=== PATIENT | male | born 1925 | race Caucasian/White ===

== ENCOUNTER 2017-07-10 08:44 | Inpatient (IN) | payer MEDICARE, OTHER ==
[~2017-07-10] VITALS: Ht 175.3 cm; Wt 72.1 kg
[~2017-07-10 08:44] MED LIST: ARICEPT 5 MG TAB5 MG PO; ASA81BEC PO; AZULFIDINE500 MG PO; CALCIUM 500 +1 EAC5 PO; CENTRUM SILVER1 EAC4 PO; DETROL LA4 MG PO; HYDROXYCHLOROQ200 M1 PO; PROBIOTIC1 EAC1 PO; TOPROL XL25 MG PO; VITAMIN E400 UNIT PO; ZANTAC 150MG T150 MG PO
--- NOTE | 2017-07-10 08:51 | NUR ---
CODE STROKE ACTIVATED FROM THE FIELD AT 0832 SEE CODE STROKE PAPERWORK.
[2017-07-10] MEDS ORDERED: GALANTAMINE HBR16 MG PO (08:56)
[2017-07-10] MEDS ORDERED: NORVASC5 MG PO (08:56)
[2017-07-10] MEDS ORDERED: CLOTRIMAZOLE 1%15 G1 TOP (08:57)
[2017-07-10] MEDS ORDERED: PRESERVISION A1 EACH PO (08:57)
[2017-07-10] MEDS ORDERED: HYDROCORTISONE30 G9 TOP (08:58)
[2017-07-10] MEDS ORDERED: VUSION OINTMENT50 GM TOP (08:58)
[2017-07-10] MEDS ORDERED: TINACTIN150 GM TOP (08:59)
[2017-07-10] MEDS ORDERED: [UNRECOGNIZED DRUG - OTHER] TOP (08:59)
[2017-07-10 09:09] LABS: HEMOGLOBIN 12.4 gm/dL (14.0-18.0); NUCLEATED RBCS 0 /100WBC
[2017-07-10 09:10] LABS: ABSOLUTE BASOPHILS 0.1 thou/uL (0.0-0.2); ABSOLUTE EOSINOPHILS 0.7 thou/uL (0.0-0.7); ABSOLUTE LYMPHOCYTES 2.9 thou/uL (0.8-5.3); ABSOLUTE MONOCYTES 1.2 thou/uL (0.0-1.2); ABSOLUTE NEUTROPHILS 6.3 thou/uL (1.6-8.1); BASOPHILS 1.1 %; EOSINOPHILS 6.1 %; HEMATOCRIT 37.1 % (42.0-52.0); LYMPHOCYTES 26.1 %; MCH 32.8 pg (26.0-34.0); MCHC 33.4 g/dL (28.0-37.0); MCV 98.3 fL (80.0-100.0); MONOCYTES 11.1 %; PLATELET COUNT* 219 thou/uL (150-400); POLYS 55.6 %; RBC 3.78 mil/uL (4.50-6.00); RDW-CV 14.1 % (10.5-14.5); WBC 11.3 thou/uL (4.0-11.0)
[2017-07-10 09:17] LABS: ANION GAP 6 mmol/L (7-16); BUN 21 mg/dL (7-18); CALCIUM 8.5 mg/dL (8.5-10.1); CHLORIDE 104 mmol/L (98-107); CO2 31 mmol/L (21-32); CREATININE 0.9 mg/dL (0.6-1.3); GLUCOSE 116 mg/dL (70-99); POTASSIUM 3.2 mmol/L (3.5-5.1); SODIUM 141 mmol/L (136-145)
[2017-07-10 09:19] LABS: APTT 23.4 Seconds (25.0-31.3); INR 1.3; PROTIME 12.6 Seconds (9.20-11.50)
[2017-07-10 09:24] LABS: ALKALINE PHOSPHATASE 109 U/L (46-116); SGOT 28 U/L (15-37); SGPT 22 U/L (30-65); TOTAL BILIRUBIN 1.4 mg/dL (<0.1-1.0); TOTAL PROTEIN 6.7 g/dL (6.4-8.2); TROPONIN-I LEVEL <0.06 ng/mL (<0.06)
[2017-07-10 14:46] VITALS: BP 154/86
--- NOTE | 2017-07-10 16:01 | EKG ---
[place] [address] ELECTROCARDIOGRAM REPORT Name: RAMIROPAVAN Room: [address] ADM IN .R.#: [id number] Admission: 07/10/17 Attend Phys: Danika Motley Discharge: Date of : [birth year] Report #: [id number] THIS REPORT FOR: //name// [facility] ED Test Date: 2017-07-10 Test Time: 09:12:48 Pat Name: PAVAN RUBIO Department: Room: [facility] Gender: Insurance Biller: Tj PALACIOS : 1925 Requested By: Wilber Orozco Order Number: [id number] MD: Mumtaz Calderon Measurements Intervals [place] Rate: 119 P: CO: QRS: 32 QRSD: 120 T: 52 QT: 362 QTc: 510 Interpretive Statements Atrial fibrillation Nonsustained VT suggested Nonspecific intraventricular conduction delay Nonspecific T abnormalities, lateral leads No previous ECG available for comparison Electronically Signed On 07-10-2017 16:01:33 CUFF TURNER MACHINE OPERATOR by Mumtaz Calderon [email or web address] <ELECTRONICALLY SIGNED> By: Mumtaz Calderon MD, [facility] 07/10/17 1601 1 1 Mumtaz Calderon MD, FACC /EPI
[2017-07-10 19:25] VITALS: BP 135/78
[2017-07-11] VITALS (7 sets, daily range): BP systolic 91–158; BP diastolic 58–96
[2017-07-11 01:32] LABS: POC CA IONIZED 4.5 mg/dL (4.5-5.3); POC CREATININE 0.8 mg/dL (0.6-1.3); POC HEMOGLOBIN 11.9 g/dL (12.0-17.0); POC POTASSIUM 3.4 mmol/L (3.5-4.9)
--- NOTE | 2017-07-11 02:01 | NUR ---
ASSUMED CARE OF PT AT 1900. PT IS VERY CONFUSED. VSS. PERRLA. NO SIGNS OF PAIN. NIH IS VERY HIGH. PT IS UNABLE TO FOLLOW SIMPLE COMMANDS SO IM UNSURE PT UNDERSTANDS NIH DIRECTIONS. HOWEVER, PT IS FLACCID ON HIS LEFT SIDE. HIS SPEECH IS VERY SLURRED AND HE HAS A SIGNIFICANT FACIAL DROOP. PT IS IN A FIB ON THE TELEMETRY. PT IS RESTING COMFORTABLY IN BED. RESPIRATIONS ARE EVEN AND NONLABORED. WILL CONTINUE TO MONITOR PT.
[2017-07-11 05:30] LABS: ABSOLUTE EOSINOPHILS 0.1 thou/uL (0.0-0.7); ABSOLUTE LYMPHOCYTES 1.9 thou/uL (0.8-5.3); ABSOLUTE MONOCYTES 1.3 thou/uL (0.0-1.2); ABSOLUTE NEUTROPHILS 6.3 thou/uL (1.6-8.1); BASOPHILS 0.5 %; EOSINOPHILS 1.3 %; HEMOGLOBIN 11.6 gm/dL (14.0-18.0); LYMPHOCYTES 19.5 %; MCH 33.3 pg (26.0-34.0); MCHC 34.1 g/dL (28.0-37.0); MCV 97.7 fL (80.0-100.0); MONOCYTES 13.5 %; MPV 8.6 fl. (7.2-11.1); NUCLEATED RBCS 0 /100WBC; PLATELET COUNT* 201 thou/uL (150-400); POLYS 65.2 %; RBC 3.48 mil/uL (4.50-6.00); RDW-CV 13.7 % (10.5-14.5); WBC 9.6 thou/uL (4.0-11.0)
[2017-07-11 06:02] LABS: CREATININE 0.7 mg/dL (0.6-1.3)
[2017-07-11 07:14] LABS: POTASSIUM 3.8 mmol/L (3.5-5.1)
--- NOTE | 2017-07-11 15:41 | NUR ---
CM ASSESSMENT: Pt was fast asleep in bed. Dtr at bedside. Pt resides at [facility] on the memory care unit, for the past 16 months. Pt can complete some of his ADLs, but requires guidance from staff. Pt uses a walker for mobility. Pt wears a leg brace. Hx of HH, but dtr does not remember the name of the agency. Dtr is contemplating hiring a nurse to stay with Pt during the day while at [facility]. No home o2. Hx of a nebulizer. Dtr stated the ER dr recommended that Pt go to rehab at dc. PT/OT evals pending. Following for dc needs.
--- NOTE | 2017-07-11 16:25 | NUR ---
ASSUMED PT CARE AT 0700 PT IS ALERT TO SELF PT SHOWS NO SIGNS OF PAIN OR SOA ON 2L/NC PT IS CONFUSED TRIES TO TAKE OF O2 FAMILY STATES THIS IS BASELINE PT IS A FALL RISK BED ALARM IS ON, PT IS FLACCID ON LEFT SIDE PT ON BEDREST, TALKED WITH DR VAZQUEZ ABOUT GIVING TAMIFLU RECTALLY PHYSICIAN APPROVED ROUTE OF ADMISSION, TALKED WITH MDS RN AND OBTAINED ORDER FOR RECTAL ASPIRIN FROM PHYSICIAN, SPEECH EVAULUATION ORDERED SPEECH EVAULUATED PT AND ORDERED DIET FOR PT AND NECTAR THICK LQUIDS PT NEEDS TO BE FULLY AWAKE TO FEED, OBTAINED COPY OF PT LIVING WILL, PT IS AFIB ON THE MONITOR PT HAS HISTORY OF AFIB, WILL CONTINUE TO MONITOR
--- NOTE | 2017-07-11 22:07 | NUR ---
ASSUMED CARE OF PT AT 1900. PT IS CONFUSED BUT MORE ALERT THAN THIS MORNING. PT HAS MADE SIGNIFICANT IMPROVEMENTS. HIS NIH IS NOW ONLY AT 12 AND SOME OF THAT IS DO TO THE FACT THAT I DONT THINK HE IS ABLE TO UNDERSTAND SOME OF THE DIRECTIONS. HIS LEFT SIDE IS NO LONGER FLACCID BUT STILL HAS A DRIFT. HIS RIGHT SIDE NO LONGER HAS A DRIFT. HE UNDERSTANDS AND IS ABLE TO FOLLOW SIMPLE COMMANDS SUCH SMILE AND OPEN AND CLOSE FISTS. HE ALSO WAS ABLE TO EAT 1 CONTAINER OF PUDDING AND DRINK A THICKENED ORANGE JUICE. VSS. NO COMPLAINTS OF PAIN. PT DOES HAVE A SORE ON HIS LIP WHICH HE CONTINUES TO PICK AT. PT IS IN A FIB ON THE TELEMETRY. PT IS RESTING COMFORTABLY IN BED. RESPIRATIONS ARE EVEN AND NONLABORED. WILL CONTINUE TO MONITOR PT.
[2017-07-12] VITALS: BP 128/73
[2017-07-12 04:00] VITALS: BP 121/69
[2017-07-12 05:43] LABS: ABSOLUTE MONOCYTES 0.6 thou/uL (0.0-1.2); ABSOLUTE NEUTROPHILS 8.3 thou/uL (1.6-8.1); BASOPHILS 0.2 %; HEMATOCRIT 37.4 % (42.0-52.0); HEMOGLOBIN 12.5 gm/dL (14.0-18.0); LYMPHOCYTES 10.1 %; MCH 32.6 pg (26.0-34.0); MCHC 33.3 g/dL (28.0-37.0); MCV 97.9 fL (80.0-100.0); MONOCYTES 5.7 %; NUCLEATED RBCS 0 /100WBC; PLATELET COUNT* 235 thou/uL (150-400); RBC 3.82 mil/uL (4.50-6.00); WBC 9.9 thou/uL (4.0-11.0)
[2017-07-12 05:58] LABS: CALCIUM 8.6 mg/dL (8.5-10.1); CREATININE 0.9 mg/dL (0.6-1.3); POTASSIUM 3.6 mmol/L (3.5-5.1)
[2017-07-12 06:11] LABS: CHOLESTEROL 158 mg/dL (<200); HDL CHOLESTEROL 39 mg/dL (>40); LDL CHOLESTEROL 107 mg/dL (<100); SERUM ASSESSMENT Clear; TC:HDL 4.1 Ratio (Not establshd); TRIGLYCERIDE 60 mg/dL (<150); VLDL 12 mg/dL (<40)
[2017-07-12 11:24] VITALS: BP 117/69
--- NOTE | 2017-07-12 15:47 | NUR ---
Rehab consult placed.
[2017-07-12 15:58] VITALS: BP 174/73
--- NOTE | 2017-07-12 16:46 | NUR ---
ASSUMED PT CARE AT 0700 PT IS ALERT AND ORIENTED X 3 PT SHOWS NO SIGNS OF PAIN OR SOA ON 2L/NC PT BASELINE IS CONFUSED PT COMES FROM A FACILTIY PT HAS LEFT SIDED WEAKNESS PT IS ABLE TODAY TO LIFT LEFT ARM AND LEFT LEG PT ABLE TO SWALLOW MEDICATIONS AND EAT MECHANICAL GROUND FOOD AND HAVE NECTAR THICK LIQUIDS PT HAS DIFFICULTY FOLLOWING COMMANDS CAN FOLLOW SIMPLE INSTRUCTIONS, PT IS AFIB ON THE MONITOR, PT UP WITH MAX ASSIST TO THE CHAIR PT IS A FALL RISK BED AND CHAIR ALARMS ON, WILL CONTINUE TO MONITOR
[2017-07-12 20:00] VITALS: BP 140/78
[2017-07-12 22:11] LABS: GLYCOHEMOGLOBIN (HGB A1C) 5.4 % (4.8-5.6)
[2017-07-13] VITALS: BP 165/76
[2017-07-13 04:00] VITALS: BP 154/76
--- NOTE | 2017-07-13 05:04 | NUR ---
PT ALERT FORGETFUL. INCONT OF URINE. BUTTOCKS RED. PICTURES TAKEN WOUND NURSE NOTIFIED. TURNED Q 2 HRS. PT IN ISOLATION FOR FLU. O2 AT 2 LITERS NC. LOOSE NONPRODUCTIVE COUGH. ON NECTAR THICK LIQUIDS. WILL CONTINUE TO MONITOR.
[2017-07-13 05:25] LABS: HEMATOCRIT 35.1 % (42.0-52.0); HEMOGLOBIN 11.6 gm/dL (14.0-18.0); MCH 32.5 pg (26.0-34.0); MCHC 33.1 g/dL (28.0-37.0); MCV 98.1 fL (80.0-100.0); MPV 8.8 fl. (7.2-11.1); NUCLEATED RBCS 0 /100WBC; PLATELET COUNT* 261 thou/uL (150-400); RBC 3.58 mil/uL (4.50-6.00); RDW-CV 14.2 % (10.5-14.5); WBC 16.8 thou/uL (4.0-11.0)
[2017-07-13 05:37] LABS: CALCIUM 8.6 mg/dL (8.5-10.1); CREATININE 0.9 mg/dL (0.6-1.3); POTASSIUM 3.5 mmol/L (3.5-5.1)
[2017-07-13 06:31] LABS: ABSOLUTE LYMPHOCYTES 1.3 thou/uL (0.8-5.3); ABSOLUTE MONOCYTES 1.3 thou/uL (0.0-1.2); ABSOLUTE NEUTROPHILS 14.1 thou/uL (1.6-8.1); ANISOCYTOSIS 1+; PLATELET ESTIMATE ADEQUATE; POIKILOCYTOSIS 1+
--- NOTE | 2017-07-13 07:25 | NUR ---
CHANGE OF SHIFT, BEDSIDE REPORT GIVEN ASSUMED PATIENT CARE PATIENT SEEN AT BEDSIDE, ASLEEP BED ALARM SET
[2017-07-13 08:00] VITALS: BP 143/85
--- NOTE | 2017-07-13 10:13 | NUR ---
Rehab is able to accept Pt on Monday.
--- NOTE | 2017-07-13 14:50 | NUR ---
WOUND NURSE: PATIENT SEEN FOR WOUND ASSESSMENTOF SKIN LESIONS ON BUTTOCKS AND SACRUM. RIGHT SACRUM PRESENTS 1.0 X 1.0 X 0.1 CM RUPTURED BULLA WITH SCANT AMOUNT OF SEROUS DRAINAGE PRESENT AT TIME OF THIS ASSESSMENT. THERE IS SMALL AMOUNT OF LOCALIZED REDNESS, NO WARMTH OR INDURATION. LEFT BUTTOCK AND SACRUM WITH 1 CM CIRCIFORM AREA WITH RED, NONBLANCHEABLE SKIN, NO OPEN WOUND. OPEN AREA WAS CLEANSED WITH SOAP AND WATER, RINSED WITH WATER, THEN PATTED DRY. APPLIED SKIN PREP TO INTACT PERIWOUND TISSUE, THEN APPLIED AQUACEL AG UNDER BORDERED FOAM. ABOVE PROCEDURE TOLERATED WELL. PATIENT ON HIS WAY FOR XRAY PROCEDURE. MOISTURE BARRIER APPLIED TO BUTTOCKS FOR PROTECTION.
[2017-07-13 20:00] VITALS: BP 141/90
--- NOTE | 2017-07-14 04:19 | NUR ---
PT ALERT ORIENTED TO SELF AND PLACE. TELEMETRY SHOWS A FIB. ON NECTAR THICK. POOR PO INTAKE. PT NEEDS ENCOURAGEMENT. O2 AT 2 LITERS NC. NONPRODUCTIVE COUGH. TURNING Q 2 HRS. WILL CONTINUET TO MONITOR.
[2017-07-14 05:20] LABS: ABSOLUTE LYMPHOCYTES 1.2 thou/uL (0.8-5.3); ABSOLUTE MONOCYTES 1.1 thou/uL (0.0-1.2); ABSOLUTE NEUTROPHILS 8.8 thou/uL (1.6-8.1); BASOPHILS 0.1 %; EOSINOPHILS 0.1 %; HEMATOCRIT 33.6 % (42.0-52.0); HEMOGLOBIN 11.3 gm/dL (14.0-18.0); LYMPHOCYTES 11.2 %; MCH 32.6 pg (26.0-34.0); MCHC 33.6 g/dL (28.0-37.0); MCV 97.2 fL (80.0-100.0); MONOCYTES 10.1 %; MPV 8.9 fl. (7.2-11.1); NUCLEATED RBCS 0 /100WBC; PLATELET COUNT* 267 thou/uL (150-400); POLYS 78.5 %; RBC 3.45 mil/uL (4.50-6.00); WBC 11.2 thou/uL (4.0-11.0)
[2017-07-14 05:37] LABS: CALCIUM 8.2 mg/dL (8.5-10.1); CREATININE 0.8 mg/dL (0.6-1.3); POTASSIUM 3.7 mmol/L (3.5-5.1)
[2017-07-14 08:00] VITALS: BP 117/61
--- NOTE | 2017-07-14 09:02 | NUR ---
FOLLOW UP NOTE REGARDING ACUTE REHAB ADMISSION. Pt WITH DX OF FLU A&B, PNUEMONIA AND CVA. Pt LIVES AT THE [facility] L[facility] IN A LOCKED MEMORY UNIT. Pt IS DEP WITH OT AND CESAR Ortega WITH PT. SPOKE WITH THE [facility] TO SEE WHAT LEVEL OF CARE THEY COULD ASSIST Pt WITH AT DISCHARGE. THE [facility] REPORTS THAT Pt IS TOTAL ASSIST CARE FOR ALL ADL'S AND TOTAL ASSIST WITH BOWEL AND BLADDER AT BASELINE. AMBULATION DEPENDS OF THE DAY HE IS HAVING AND IF ABLE TO FOLLOW COMMANDS. Pt DOES NOT QUALIFY FOR ACUTE REHAB BASED ON NEW INFORMATION FROM [facility]. DR. QUINTERO FEELS Pt WOULD BENIFIT FROM SKILLED LEVEL OF CARE. NOTIFIED JORDAN YESTERDAY THAT BASED ON Pts PLOF HE DID NOT QUALIFY FOR ACUTE REHAB AND WE WERE RECOMMENDING SKILLED. THANK YOU FOR THIS REFERRAL.
--- NOTE | 2017-07-14 10:23 | NUR ---
Pt not able to go to rehab. Left VM for Pt's , Vivian. Spoke with Pt's dtr, she will contact and discuss skilled facilities. Dtr to call CM back once they are able to discuss, CM will fax referrals. [facility] does not have any beds available.
--- NOTE | 2017-07-14 10:36 | NUR ---
PT was seen d/t pressure wound to right buttock and sacrum. Pt was admitted for influenza A and B, CVA with L Pedro. Pt has plans to d/c to rehab monday. Pt was unavailable when RD visited. Pt is tolerating diet and feeding self per RN note. Pt is to only feed when alert and awake and can follow direction per comments. RD will follow up at a later time to see if intervention is needed. Chart Reviewed. Low nutrition risk.
[2017-07-14 12:00] VITALS: BP 132/80
--- NOTE | 2017-07-14 19:49 | NUR ---
PATIENT REMAINS A AND O X 3-4 FORGETFUL AT TIMES MS STATUS, IRR HR LUNGS DIM/COARSE 2L NC O2 SAT MID 90S FAIR APPETITE MECH SOFT, NECTAR THICK DIET, ASSIST FEED LAST BM T-2 FAIR UO, INC URINE UP WITH 2 MAX ASSIST BR TURN Q 2HR L SIDE FLACCID/HEMIPARESIS IV L FA 22 GA SL REMAINS IN ISOLATION DROPLET CALL LIGHT IN REACH INSTRUCTION GIVEN AND FOLLOWED MOST TIMES BED ALARM ON
[2017-07-14 20:00] VITALS: BP 119/68
[2017-07-15 04:00] VITALS: BP 130/77
--- NOTE | 2017-07-15 04:48 | NUR ---
ASSUMED PT CARE AT 1930, PT IS A&O TO PERSON PLACE BUT NOT TIME. PT IS MED SURG STATUS, PT IS VERY WEAK BUT HAS SOME MOBILITY OF LEFT SIDE OF BODY. PT IS ON 2L NC SATTING MID TO HIGH 90'S. PT IS ON NECTAR THICKENED LIQUIDS, TOLERATING WELL, PT IS ON ISOLATION FOR FLU. BED IN LOW POSITION, CALL LIGHT IN REACH, BED ALARM ON. YELLOW ARM BAND AND SOCKS IN PLACE. HOURLY ROUNDING COMPLETED FOR PT SAFETY.
[2017-07-15 05:27] LABS: HEMATOCRIT 34.9 % (42.0-52.0); HEMOGLOBIN 11.5 gm/dL (14.0-18.0); MCH 32.4 pg (26.0-34.0); MCHC 33.1 g/dL (28.0-37.0); MCV 98.1 fL (80.0-100.0); MPV 8.7 fl. (7.2-11.1); RBC 3.56 mil/uL (4.50-6.00); WBC 11.5 thou/uL (4.0-11.0)
[2017-07-15 05:57] LABS: ALBUMIN 2.6 g/dL (3.4-5.0); CALCIUM 7.9 mg/dL (8.5-10.1); CREATININE 0.9 mg/dL (0.6-1.3); MAGNESIUM 2.2 mg/dL (1.8-2.4); POTASSIUM 3.8 mmol/L (3.5-5.1); TOTAL BILIRUBIN 0.7 mg/dL (<0.1-1.0); TOTAL PROTEIN 5.2 g/dL (6.4-8.2)
[2017-07-15 09:00] VITALS: BP 108/69
--- NOTE | 2017-07-15 09:00 | NUR ---
ASSUMED PT. CARE AND RECEIVED REPORT AT 0730. PT ORIENTED TO SELF, VSS, PT. MED/SURG STATUS. FULL ASSESSMENT COMPLETED, REFER TO CHARTING. PT. ABLE TO FEED SELF WITH SET UP ASSISTANCE. INCONT. OF URINE. PT. DOES NOT ALWAYS ANSWER DIRECT QUESTIONS, MAKING NIH ASSESSMENT DIFFICULT. CALL LIGHT IN REACH, WILL CONTINUE WITH PLAN OF CARE.
[2017-07-15 14:16] VITALS: BP 105/79
--- NOTE | 2017-07-15 14:29 | NUR ---
NOTIFIED OF DISCHARGE TODAY TO [facility]. CALLED ROSSY AND NOTIFIED HER. FAXED ORDERS TO [phone]. SHE WILL LET NURSING KNOW PT.IS COMING. CM TO ARRANGE WC VAN FOR 1600. CALLED [facility] AND SCHEDULE WC VAN. PT.NEEDS O2 AND WC. CHART COPIED TO GO WITH PT. BY [facility] NURSING TO CALL REPORT.
--- NOTE | 2017-07-15 14:36 | NUR ---
PT.HAS DISCHARGE ORDERS TO GO TO [facility] TODAY. NOTIFIED TRISTIAN/STEFANIE. CM WILL FAX DISCHARGE ORDERS TO HER. CHART COPIED TO GO WITH PT. NURSING TO CALL REPORT TO [phone]. CM SET UP TRANSPORTATION WITH [employer] FOR 4:00-4:30. JOE NICKERSON WILL LET NURSING KNOW OF PROSTHETIC TECHNICIAN TIME.
[2017-07-15] MEDS ORDERED: BACITRACIN3.5 GM TOP (15:33)
[2017-07-15] MEDS ORDERED: DULCOLAX5 MG PO (15:37)
[2017-07-15] MEDS ORDERED: COLACE 100 MG100 MG PO (15:38)
[2017-07-15] MEDS ORDERED: MILK OF MA2400 MG/10 PO (15:39)
[2017-07-15] MEDS ORDERED: LEVAQUIN 500 M500 M2 PO (15:39)
[2017-07-15] MEDS ORDERED: MYLANTA PO (15:40)
[2017-07-15] MEDS ORDERED: TYLENOL325 MG PO (15:41)
[2017-07-15] MEDS ORDERED: ONDANSETRON HCL4 M2 PO (15:41)
--- NOTE | 2017-07-15 17:36 | NUR ---
PT. UP TO CHIAR AT LUNCH, MAX ASSIST OF 2 TO PIVOT TRANSFER. PT. HAS DIFFICULTY LETTING GO OF CHAIR/BED WHEN ASSISTED FOR FEAR OF FALLING. DC ORDERS RECEIVED. IV REMOVED. PT. AT BEDSIDE AND AWARE OF PLAN. REPORT CALLED TO MARY AT [facility]. PT. LEFT VIA WHEELCHAIR, ALL BELONGINGS ACCOUNTED FOR.
--- NOTE | 2017-07-20 11:51 | EEG ---
[address] [address] EEG STUDY REPORT Name: RAMIROPAVAN Room: [address] IN M.R.#: [id number] Admission: 07/10/17 Attend Phys: Danika Motley Discharge: 07/15/17 Date of : [birth year] Report #: [id number] THIS REPORT FOR: //name// CC: Karen Frias DATE OF SERVICE: 07/11/2017 INDICATION FOR PROCEDURE: This patient is being evaluated for the possibility of seizures. INTERPRETATION: Background activity in this patient's EEG is about 7-8 Hz and 30 microvolt. It is a symmetrical activity. It is intermixed with theta range slowing on both sides. The patient appeared to be drowsy during part of this EEG and that is associated with bilateral slowing and vertex sharp waves. Photic stimulation is unremarkable. Throughout the record, no active epileptiform activity was noticed. IMPRESSION: This patient's electroencephalogram is intermixed with theta range slowing on both sides. There is a nonspecific abnormality, which can occur with encephalopathy, effect of psychotropic medication, dementia, etc. Clinical correlation is recommended. Thank you very much for this referral. <ELECTRONICALLY SIGNED> By: Twan Davidson MD 07/20/17 1151 99 [id number] Davidson MD /jan
--- NOTE | 2017-07-20 11:51 | CON ---
[address] [address] CONSULTATION Name: PAVAN RUBIO Room: [address] IN M.R.#: [id number] Admission: 07/10/17 Attend Phys: Danika Motley Discharge: 07/15/17 Date of : [birth year] Report #: [id number] THIS REPORT FOR: //name// CC: Karen Frias DATE OF SERVICE: 07/10/2017 HISTORY OF PRESENT ILLNESS: This is an 89-year-old male patient who is unable to provide any history at all because he is pretty sedated, sedation was given for MRI. The family tells me that this patient has progressive dementia. Daughters tell me that they have used the word dementia. The tells me that they have use the word Alzheimer. From all indication it looks like it is advanced dementia. He does not remember the month and day usually and he does need significant help in day-to-day activity. REVIEW OF SYSTEMS: Pretty extensive in this patient. 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 It has bled twice causing a bleed in the brain. The last time he had any intervention done was gamma knife about 18 years ago and then decided that he is not going to go for a followup and is not going to have any further treatment. Some of the records indicate that he also has a history of atrial fibrillation. At one time, he used to be on donepezil, but that was discontinued and some other medication was started according to the family. This was his relevant 14-point review of systems. 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 FAMILY HISTORY: Negative for seizure. SOCIAL HISTORY: Indicates that this patient has a supportive family and I understand he does not drink any alcohol or smoke. PHYSICAL EXAMINATION: Impossible. He was sedated and he does not say anything or move anything. His respirations appear to be preserved. He is a reasonably well-developed individual. I reviewed multiple things on him. His last blood pressure was 153/86, respiration is 20, pulse is 107. LABORATORY DATA: Indicate white count is trace, high at 11.3. Potassium is 3.2. He had a CT scan and subsequently had an MRI. MRI demonstrates right cerebral hemispheric stroke. The patient also has influenza. IMPRESSION: 1. Cerebrovascular accident in [place] [address] CONSULTATION Name: PAVAN RUBIO Room: [address]#: [id number] Admission: 07/10/17 Attend Phys: Danika Motley Discharge: 07/15/17 Date of : [birth year] Report #: [id number] 2. Influenza, which may be causing some encephalopathy. RECOMMENDATION: A very difficult situation in this patient. He had a dementia which looks advanced, has a stroke and on top of that encephalopathy from which recovery is usually incomplete at this age. I had talked to the family in great detail and I will talk to them again. They need to decide how aggressive to be in this patient. This is also true because the chances of him having another stroke in future is very high and he is not a good candidate for anticoagulation or even antiplatelet although we will give them after talking to the family. Antiplatelet and anticoagulation will make the chances of having a bigger bleed however, although the chances of bleed may not change much. The other option will be to carry out very conservative care in this patient and I think that may be a better option in this patient. Thank you very much for this referral. <ELECTRONICALLY SIGNED> By: Twan Davidson MD 07/20/17 1151 1420 [id number] Davidson MD /nt
--- NOTE | 2017-08-08 14:42 | CON ---
[address] [address] CONSULTATION Name: PAVAN RUBIO Room: [address] IN .R.#: [id number] Admission: 07/10/17 Attend Phys: Danika Motley Discharge: 07/15/17 Date of : [birth year] Report #: [id number] THIS REPORT FOR: //name// CC: Karen Frias DATE OF SERVICE: 07/13/2017 REASON FOR CONSULTATION: Evaluation and recommendations regarding post-acute rehabilitation in an 89-year-old male who lives in [facility] care unit where his previous level of function was minimum to moderate assistance with ADLs on a daily basis. Current level of function is dependent with occupational therapy, maximum assistance with physical therapy and mild to moderate swallowing issues on a mechanical soft diet. He did present to the Emergency Room on July 10 after not feeling well. He did have an esophageal disimpaction at [facility] last week. He did test positive for influenza A, influenza B pneumonia and has a previous history of stroke, which sounds like it was a right CVA with residual left deficits, which have been exacerbated during this hospital stay. He does utilize a walker on a regular basis. He does have supportive family in the area; however, they are not available during the day. 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 PAST SURGICAL HISTORY: Please see above. SOCIAL HISTORY: No tobacco, alcohol or illicit drug use. FAMILY HISTORY: Heart disease. REVIEW OF SYSTEMS: A 14-point review of systems is done and is negative except as mentioned in the HPI, specifically no fever, chest pain, shortness of breath, abdominal pain or distention. PHYSICAL EXAMINATION: GENERAL: Alert, in no acute distress. HEENT: Head atraumatic. LUNGS: Symmetric expansion. SKIN: Warm and dry. EXTREMITIES: No clubbing, cyanosis or edema. NEUROLOGIC: He does have some motor deficit on the left upper and lower extremity with [place]ip[place] [address] CONSULTATION Name: RAMIROPAVAN Room: [address]#: [id number] Admission: 07/10/17 Attend Phys: Danika Motley Discharge: 07/15/17 Date of : [birth year] Report #: [id number] ASSESSMENT: 1. Acute influenza A and B. 2. Acute to subacute ischemic infarct in the right posterior frontal and parietal region noted on MRI. 3. Aspiration pneumonia. 4. Sepsis, improving. 5. Exacerbation of left-sided post-stroke hemiparesis. 6. Dementia. 7. Alzheimer's. 8. Hypertension. 9. History of arteriovenous malformation. PLAN: 1. Recommend given his level of care and his previous level of function of minimum assistance on a daily basis with ADLs, doing perhaps a skilled or subacute level of care for ongoing therapies; however, it does sound like his baseline is minimum assistance, sometimes moderate assistance at his independent living facility. 2. Continue with physical and occupational therapy as well as speech and language pathology. 3. We will follow while on acute hospital stay. <ELECTRONICALLY SIGNED> By: Marleny Rodriguez DO 08/08/17 1442 1531 [id number] Rodriguez DO /nt
== END 2017-07-15 16:40 | DRG 871 ==
LOC: M.ERS 08:44 → M.TBA-ER 11:12 → M.2W 11:12
PROVIDERS: Emergency Medicine Emergency Medical Services; Family Medicine; ADMIT Internal Medicine
DX: A41.9 Sepsis, unspecified organism (principal); J69.0 Pneumonitis due to inhalation of food and vomit; I63.8 Other cerebral infarction; J11.00 Influenza due to unidentified influenza virus with unspecified type of pneumonia; G93.40 Encephalopathy, unspecified; G81.94 Hemiplegia, unspecified affecting left nondominant side; Q27.30 Arteriovenous malformation, site unspecified; K21.9 Gastro-esophageal reflux disease without esophagitis; I48.91 Unspecified atrial fibrillation; M06.9 Rheumatoid arthritis, unspecified; G30.9 Alzheimer's disease, unspecified; F02.80 Dementia in other diseases classified elsewhere, unspecified severity, without behavioral disturbance, psychotic disturbance, mood disturbance, and anxiety; I10 Essential (primary) hypertension; Z79.82 Long term (current) use of aspirin; Z90.49 Acquired absence of other specified parts of digestive tract; Z82.49 Family history of ischemic heart disease and other diseases of the circulatory system; Z79.899 Other long term (current) drug therapy